=== PATIENT | female | born 1950 | race Caucasian/White ===

== ENCOUNTER → 2017-04-05 | Outpatient (CLI) | payer MEDICARE ==
[~2017-04-05] MED LIST: CYAN10005 PO; DEXL60CA PO; NEBI10TA3 PO; OMEP-110 PO; OMEP40CA6 PO
[2017-04-05 13:07] LABS: ASPARTATE AMINO TRANSFERASE 14 U/L (15-37); BLOOD UREA NITROGEN 13 mg/dL (7-18)
[2017-04-05 13:25] LABS: ANISOCYTOSIS 2+; HYPOCHROMIA 1+; MICROCYTOSIS 2+
[2017-04-05 13:26] LABS: OVALOCYTES 1+; POIKILOCYTOSIS 1+
[2017-04-05 13:27] LABS: LARGE PLATELETS 1+; STOMATOCYTES 1+
== END | disposition home or self-care (01) ==
LOC: STAR 10:49
PROVIDERS: ATTEND Thoracic Surgery (Cardiothoracic Vascular Surgery)
DX: Z01.818 Encounter for other preprocedural examination (principal); K44.9 Diaphragmatic hernia without obstruction or gangrene
CPT/HCPCS: 36415; 71020; 80053; 85025; 93005

== ENCOUNTER 2017-04-17 06:51 | Inpatient (IN) | payer MEDICARE ==
[~2017-04-17] VITALS: Ht 149.9 cm; Wt 73.5 kg
[~2017-04-17 06:51] MED LIST changes: +BUPIVACAINE/PF-EPI 0.5% 1:200K ONE
[2017-04-17] MEDS ORDERED: MIDAZOLAM 1 MG/ML, 2ML ONE (06:54)
[2017-04-17] MEDS ORDERED: FENTANYL PF 250 MCG/5ML ONE (06:54)
[2017-04-17] MEDS ORDERED: LACTATED RINGERS 1,000 ML IV SCH (07:15)
[2017-04-17 07:36] VITALS: BP 172/91
[2017-04-17] MEDS ORDERED: LABETALOL 5MG/ML, 20ML IV PRN (10:00)
[2017-04-17] MEDS ORDERED: HYDROmorphone 1 MG/ML, 1ML IV PRN (10:00)
[2017-04-17] MEDS ORDERED: METOCLOPRAMIDE 5 MG/ML, 2ML IV PRN (10:00)
[2017-04-17] MEDS ORDERED: ONDANSETRON 2MG/ML, 2ML IVPush PRN ×2 (10:00→11:30)
[2017-04-17] MEDS ORDERED: FENTANYL PF 100 MCG/2ML IV PRN (10:00)
[2017-04-17] MEDS ORDERED: ACETAMINOPHEN 325 MG TABLET PO PRN (10:00)
[2017-04-17] MEDS ORDERED: OXYcodone 5 MG/5 ML ORAL.SOL UDC PO PRN (10:00)
[2017-04-17] MEDS ORDERED: SUGAMMADEX 200 MG/2 ML IVPush ONE (10:00)
[2017-04-17] MEDS ORDERED: hydrALAzine 20 MG/ML, 1ML IV PRN (11:30)
[2017-04-17] MEDS ORDERED: DIPHENHYDRAMINE 50 MG/ML, 1ML IV PRN (11:30)
[2017-04-17] MEDS ORDERED: ACETAMINOPHEN 650 MG SUPP PR PRN (11:30)
[2017-04-17] MEDS ORDERED: morphine SULFATE 10 MG/ML, 1ML IV PRN (11:30)
[2017-04-17] MEDS ORDERED: KETOROLAC 30 MG/1 ML IV PRN (11:30)
[2017-04-17] MEDS ORDERED: PROMETHAZINE 25 MG/ML, 1ML IM PRN (11:30)
[2017-04-17] MEDS ORDERED: ENALAPRILAT 1.25 MG/ML, 2ML IV PRN (11:30)
[2017-04-17] MEDS ORDERED: PROMETHAZINE 12.5 MG SUPP PR PRN (11:30)
[2017-04-17] MEDS ORDERED: LORazepam 2 MG/ML, 1ML IV PRN (11:30)
[2017-04-17] MEDS ORDERED: HYDROcodone/APAP 7.5-325MG/15ML UDC PO PRN (11:30)
[2017-04-17] MEDS: INSULIN REGULAR 100 UNITS/ML, 3ML VIAL SQ-INSULIN SCH ×3 (11:30→20:40)
[2017-04-17] MEDS ORDERED: ACETAMINOPHEN 650 MG/20.3 ML UDC ONE (11:34)
[2017-04-17] MEDS ORDERED: OXYcodone 5 MG/5 ML ORAL.SOL UDC ONE (11:35)
[2017-04-17] MEDS ORDERED: hydrALAzine 20 MG/ML, 1ML ONE (11:35)
[2017-04-17] MEDS ORDERED: ACETAMINOPHEN 325 MG/10.15 ML UDC ONE (11:35)
[2017-04-17] MEDS: hydrALAzine 20 MG/ML, 1ML IV PRN ×2 (11:37→12:11)
[2017-04-17] MEDS ORDERED: FENTANYL PF 100 MCG/2ML ONE (12:08)
[2017-04-17 14:15] VITALS: BP 108/64
[2017-04-17] MEDS: PANTOPRAZOLE 40 MG IV IVPush SCH (14:32)
[2017-04-17] MEDS ORDERED: ONDANSETRON 2MG/ML, 2ML ONE (16:12)
[2017-04-17] MEDS ORDERED: SUCCINYLCHOLINE 20 MG/ML, 10ML ONE (16:12)
[2017-04-17] MEDS ORDERED: EPHEDRINE 50 MG/ML, 1ML ONE (16:12)
[2017-04-17] MEDS ORDERED: PROPOFOL 10 MG/ML, 20ML ONE (16:12)
[2017-04-17] MEDS ORDERED: ROCURONIUM 10 MG/ML ONE (16:12)
[2017-04-17] MEDS ORDERED: CEFAZOLIN 1,000 MG ONE (16:12)
[2017-04-17] MEDS: CEFAZOLIN PMX 1GM/50ML 50 ML IVPB SCH (17:53)
[2017-04-17 19:06] VITALS: BP 102/60
[2017-04-17] MEDS: LACTATED RINGERS 1,000 ML IV SCH (20:40)
[2017-04-17 23:18] VITALS: BP 108/74
[2017-04-18] MEDS: CEFAZOLIN PMX 1GM/50ML 50 ML IVPB SCH (01:47)
[2017-04-18 01:58] VITALS: BP 108/72
[2017-04-18] MEDS: LACTATED RINGERS 1,000 ML IV SCH (03:00)
[2017-04-18] MEDS ORDERED: NEBIVOLOL HCL 5 MG TABLET PO SCH (09:00)
[2017-04-18] MEDS ORDERED: ENOXAPARIN 40 MG/0.4 ML SQ SCH (09:00)
[2017-04-18] MEDS: PANTOPRAZOLE 40 MG IV IVPush SCH (10:07)
[2017-04-18] MEDS: INSULIN REGULAR 100 UNITS/ML, 3ML VIAL SQ-INSULIN SCH (10:08)
[2017-04-18 10:32] VITALS: BP 148/88
[2017-04-18] MEDS ORDERED: HYDR473S51 PO (12:10)
== END 2017-04-18 12:40 | disposition home or self-care (01) | DRG 326 ==
LOC: OUT 06:51 → MERGE 09:00 → ORIP 11:24 → 4NOR 13:05 → DCLOUNGE 04-18 11:48
PROVIDERS: ADMIT Thoracic Surgery (Cardiothoracic Vascular Surgery); ATTEND Thoracic Surgery (Cardiothoracic Vascular Surgery)
PROC: 0JB40ZZ Excision of Right Neck Subcutaneous Tissue and Fascia, Open Approach (ICD-10-PCS; 2017-04-17)
PROC: 0DV44ZZ Restriction of Esophagogastric Junction, Percutaneous Endoscopic Approach (ICD-10-PCS; 2017-04-17)
PROC: 0BUS4JZ (ICD-10-PCS; principal; 2017-04-17 09:30)
PROC: 0BUR4JZ (ICD-10-PCS; 2017-04-17 09:30)
DX: K44.9 Diaphragmatic hernia without obstruction or gangrene (principal); K25.4 Chronic or unspecified gastric ulcer with hemorrhage; D50.9 Iron deficiency anemia, unspecified; I10 Essential (primary) hypertension; R22.1 Localized swelling, mass and lump, neck; Z88.8 Allergy status to other drugs, medicaments and biological substances; Z91.013 Allergy to seafood; Z82.49 Family history of ischemic heart disease and other diseases of the circulatory system; Z87.891 Personal history of nicotine dependence
CPT/HCPCS: 82962; 88307; J0690; J1650; J1815; J1885; J2250; J2405; J2704; J3010; C9113; J0330; J0360; J7120; Q4116